=== PATIENT | female | born 1995 | race Caucasian/White ===

== ENCOUNTER 2018-10-31 06:44 | Emergency (ER) | payer OTHER ==
[~2018-10-31] VITALS: Ht 157.5 cm; Wt 44.5 kg
--- OUTSIDE RECORDS SUMMARY | 2018-10-31 06:49 | XMS REPORT | Continuity of Care Document ---
Author Author [facility] Interface Address Unknown Phone Unavailable Problems Problem Status Onset Date Classification Date Reported Comments Source Female dyspareunia 09/03/2018 09/04/2018 [facility] Menorrhagia 08/16/2018 08/19/2018 [facility] Dysmenorrhea 08/16/2018 08/19/2018 [facility] Hot flashes 08/16/2018 08/19/2018 [facility] Dyspareunia, female 04/07/2018 10/25/2018 [facility] Vaginal discharge 04/07/2018 10/25/2018 [facility] Irregular menstrual cycle 04/07/2018 10/25/2018 [facility] Final: Post- depression 06/04/2017 06/06/2017 [facility] Final: 6 weeks follow-up 05/21/2017 05/23/2017 [facility] Final: Contraception management 05/21/2017 05/23/2017 [facility] Final: examination following delivery 04/27/2017 04/30/2017 [facility] DECREASED MOVEMENT Active 04/08/2017 [facility] Discharge Diagnosis: 29 weeks gestation of 01/21/2017 01/24/2017 [facility] GENERAL WEAKNESS Active 01/21/2017 [facility] 16 weeks gestation of Resolved 10/30/2016 Problem 10/25/2018 [facility] Resolved 02/13/2016 Problem 10/25/2018 [facility] ABD PAIN Active 10/24/2014 [facility] Appendicitis Resolved 06/14/2008 Problem 10/25/2018 [facility] Herpes Resolved Problem 10/25/2018 [facility] ABDMNAL PAIN UNSPCF SITE Active [facility] Medications Medication Details Route Status Patient Instructions Ordering Provider Order Date Source Cephalexin 500 MG Oral Capsule [Keflex] 500 mg=1 cap, PO, BID, X 7 day, # 14 cap, 0 Refill(s), Pharmacy: [facility] No Longer Active 05/11/2018 [facility] Clindamycin 20 MG/ML Vaginal Cream 1 appl, VAG, Bedtime, # 5 gm, 1 Refill(s), Pharmacy: [facility] No Longer Active 04/07/2018 [facility] tinidazole 500 mg oral tablet 2,000 mg=4 tab, PO, ONCE, # 4 tab, 0 Refill(s), Pharmacy: [facility] No Longer Active 04/07/2018 [facility] Sertraline 50 MG Oral Tablet [Zoloft] 50 mg=1 tab, PO, Daily, # 30 tab, 5 Refill(s), Pharmacy: [facility] Active 06/04/2017 [facility] influenza virus vaccine, inactivated 0.5 mL, Route: IM, Drug Form: SUSP, Daily, Start date: 04/11/17 16:00:00 CDT, Duration: 1 doses or times, Stop date: 04/11/17 16:00:00 CDTNotes: (Same as: Fluzone Quadrivalent, Fluarix Quadrivalent) For 3 years of age and older (0.5 mL IM) Shake well before use Inactive 04/11/2017 [facility] Tender Care topical ointment See Instructions, Apply to area as needed, # 1 tube, 1 Refill(s), Pharmacy: [facility] Active 04/11/2017 [facility] ibuprofen 600 mg oral tablet 600 mg=1 tab, PO, Q6H, # 40 tab, 1 Refill(s), Pharmacy: [facility] Active 04/11/2017 [facility] docusate sodium 100 mg oral capsule 100 mg=1 cap, PO, BID, # 60 cap, 1 Refill(s), Pharmacy: [facility] Active 04/11/2017 [facility] acetaminophen-hydrocodone 325 mg-10 mg oral tablet 1 tab, PO, Q4H, PRN Pain Score 7-10, 0 Refill(s) Active 04/11/2017 [facility] Tylenol 650 mg, 2 tab, Route: PO, Drug form: TAB, Q4H, Dosing Weight 60, kg, PRN Other -See Comment, Start date: 04/10/17 17:32:00 CDT, Duration: 30 day, Stop date: 05/10/17 17:31:00 CSTNotes: Do not exceed 4 gm/day. (Same as: Tylenol) No Longer Active 04/10/2017 [facility] acetaminophen-hydrocodone 325 mg-5 mg oral tablet 1 tab, Route: PO, Drug Form: TAB, Dosing Weight 59.545, kg, Q4H, PRN Pain Score 4-6, Start date: 04/10/17 16:51:00 CDT, Duration: 30 day, Stop date: 05/10/17 16:50:00 CSTNotes: (Same as: [place] 325/5) Do not exceed 4gm/day of acetaminophen. No Longer Active 04/10/2017 [facility] acetaminophen-hydrocodone 325 mg-5 mg oral tablet 2 tab, Route: PO, Drug Form: TAB, Dosing Weight 59.545, kg, Q4H, PRN Pain Score 7-10, NOW, Start date: 04/10/17 14:32:00 CDT, Duration: 30 day, Stop date: 05/10/17 14:31:00 CSTNotes: (Same as: Flagler 325/5) Do not exceed 4gm/day of acetaminophen. No Longer Active 04/10/2017 [facility] acetaminophen-hydrocodone 325 mg-10 mg oral tablet 1 tab, Route: PO, Drug Form: TAB, Dosing Weight 60, kg, Q4H, PRN Pain Score 7-10, NOW, Start date: 04/10/17 14:32:00 CDT, Duration: 30 day, Stop date: 05/10/17 14:31:00 CSTNotes: Do not exceed 4gm/day of acetaminophen. (Same as: [place] 325/10) No Longer Active 04/10/2017 [facility] influenza virus vaccine, inactivated 0.5 mL, Route: IM, Drug Form: SUSP, Daily, Start date: 04/10/17 9:00:00 CDT, Duration: 1 doses or times, Stop date: 04/10/17 9:00:00 CDTNotes: (Same as: Fluzone Quadrivalent, Fluarix Quadrivalent) For 3 years of age and older (0.5 mL IM) Shake well before use No Longer Active 04/10/2017 [facility] Multivitamins oral tablet 1 tab, Route: PO, Drug Form: TAB, Dosing Weight 60, kg, Daily, Start date: 04/10/17 9:00:00 CDT, Duration: 30 day, Stop date: 05/09/17 9:00:00 EDITORIAL SPECIALIST No Longer Active 04/10/2017 [facility] acetaminophen 1,000 mg, 2 tab, Route: PO, Drug form: TAB, Q6Hnow, Dosing Weight 60, kg, Start date: 04/09/17 22:27:00 CDT, Duration: 24 hr, Stop date: 04/10/17 16:27:00 CDTNotes: Max acetaminophen 4000 mg/day (4 g m/day). (Same as: Tylenol Extra Strength) Active 04/10/2017 [facility] ibuprofen 600 mg, 1 tab, Route: PO, Drug form: TAB, Q6H, Dosing Weight 60, kg, Start date: 04/09/17 18:00:00 CDT, Duration: 30 day, Stop date: 05/09/17 12:00:00 CSTNotes: (Same as: Motrin) "Do Not Crush" Take with food. No Longer Active 04/09/2017 [facility] docusate 100 mg, 1 cap, Route: PO, Drug form: CAP, BID, Dosing Weight 60, kg, Start date: 04/09/17 17:00:00 CDT, Duration: 30 day, Stop date: 05/09/17 9:00:00 CSTNotes: (Same as: Colace) (Do Not Crush) No Longer Active 04/09/2017 [facility] M-M-R II 0.5 mL, Route: SUB-Q, Drug Form: PDR/INJ, Dosing Weight 60, kg, ONCALL, Start date: 04/09/17 17:00:00 CDT, Duration: 1 doses or times, Stop date: 04/21/17 0:00:00 CSTNotes: (Same as: M-M-R II) (measles -mumps-rubella virus vaccine 0.5 ml INJ VL) WASTE: F/P - Red; E -Red GIVE PRIOR TO DISCHARGE No Longer Active 04/09/2017 [facility] tetanus/diphth/pertussis (Tdap) adult/adol 5 units-2 units-15.5 mcg/0.5 mL intramuscular suspension 0.5 mL, Route: IM, Drug Form: SUSP, Dosing Weight 60, kg, ONCALL, Start date: 04/09/17 17:00:00 CDT, Duration: 1 doses or times, Stop date: 04/19/17 0:00:00 CSTNotes: (Tdap ) For Adolecent and Adult use For IM Use. Same as: Adacel (Tdap) No Longer Active 04/09/2017 [facility] naloxone 0.4 mg, 1 mL, Route: IVP, Drug form: INJ, ONCALL, Dosing Weight 60, kg, Start date: 04/09/17 17:00:00 CDT, Duration: 24 hr, Stop date: 04/10/17 16:59:00 CDTNotes: Same as Narcan No Longer Active 04/09/2017 [facility] phenylephrine (ANES) Route: IV, Drug form: INJ, ONCE, Stop date: 04/09/17 16:56:00 CDT Inactive 04/09/2017 [facility] promethazine (ANES) Route: IV, Drug form: INJ, ONCE, Stop date: 04/09/17 16:56:00 CDT Inactive 04/09/2017 [facility] azithromycin (ANES) Route: IV, Drug form: INJ, ONCE, Stop date: 04/09/17 16:56:00 CDT Inactive 04/09/2017 [facility] Pitocin (ANES) Route: IVP, Drug form: SOLN, ONCE, Stop date: 04/09/17 16:56:00 CDT Inactive 04/09/2017 [facility] acetaminophen (ANES) Route: IV, Drug form: INJ, ONCE, Stop date: 04/09/17 16:56:00 CDT Inactive 04/09/2017 [facility] acetaminophen-hydrocodone 325 mg-5 mg oral tablet 1 tab, Route: PO, Dosing Weight 60, kg, Q4H, PRN Pain Score 4-6, Start date: 04/09/17 16:53:00 CDT, Duration: 30 day, Stop date: 05/09/17 16:52:00 EDITORIAL SPECIALIST Inactive 04/09/2017 [facility] acetaminophen-hydrocodone 325 mg-10 mg oral tablet 1 tab, Route: PO, Dosing Weight 60, kg, Q4H, PRN Pain Score 7-10, Start date: 04/09/17 16:53:00 CDT, Duration: 30 day, Stop date: 05/09/17 16:52:00 EDITORIAL SPECIALIST Inactive 04/09/2017 [facility] lanolin topical cream 1 appl, Route: TOP, PRN, Drug form: OINT, PRN Other -See Comment, Start date: 04/09/17 16:53:00 CDT, Duration: 30 day, Stop date: 05/09/17 15:52:00 CSTNotes: (Same as:Lanolin) No Longer Active 04/09/2017 [facility] zolpidem 5 mg, 1 tab, Route: PO, Drug form: TAB, Bedtime, Dosing Weight 60, kg, PRN Insomnia, Start date: 04/09/17 16:53:00 CDT, Duration: 30 day, Stop date: 05/09/17 16:52:00 CSTNotes: (Same As: Ambien) No Longer Active 04/09/2017 [facility] simethicone 160 mg, 2 tab, Route: PO, Drug form: CHEWTAB, Q8H, Dosing Weight 60, kg, PRN Gas, Start date: 04/09/17 16:53:00 CDT, Duration: 30 day, Stop date: 05/09/17 16:52:00 CSTNotes: (Same as: Mylicon) No Longer Active 04/09/2017 [facility] acetaminophen 650 mg, Route: PO, Drug form: TAB, Q4H, Dosing Weight 60, kg, PRN Other -See Comment, Start date: 04/09/17 16:53:00 CDT, Duration: 30 day, Stop date: 05/09/17 16:52:00 EDITORIAL SPECIALIST Inactive 04/09/2017 [facility] benzocaine-menthol topical 1 lozenge, Route: PO, Drug Form: SARITA, Dosing Weight 60, kg, PRN, PRN Sore Throat, Start date: 04/09/17 16:53:00 CDT, Duration: 30 day, Stop date: 05/09/17 15:52:00 CSTNotes: Cepacol lozenges Dispense 1 box=16 lozenges (Same As: Cepacol Lozenges) No Longer Active 04/09/2017 [facility] bisacodyl 10 mg, 1 supp, Route: HI, Drug form: SUPP, PRN, Dosing Weight 60, kg, PRN Other -See Comment, Start date: 04/09/17 16:53:00 CDT, Duration: 30 day, Stop date: 05/09/17 15:52:00 CSTNotes: (Same As: Dul colax, Bisco-Lax) No Longer Active 04/09/2017 [facility] oxytocin 30 units/NS 500 ml 30 unit 30 unit, 500 mL, Rate: 42 ml/hr, Infuse over: 11.9 hr, Dosing Weight 60, kg, Route: IV, Total Volume: 500 mL, Start date: 04/09/17 16:53:00 CDT, Duration: 2 day, Stop date: 04/11/17 16:52:00 CDT, Replace Every: 11.9 hr No Longer Active 04/09/2017 [facility] Lactated Ringers 1,000 mL 1,000 mL, Rate: 100 ml/hr, Infuse over: 10 hr, Route: IV, Dosing Weight 60 kg, Total Volume: 1,000, Start date: 04/09/17 16:53:00 CDT, Duration: 30 day, Stop date: 05/09/17 16:52:00 EDITORIAL SPECIALIST No Longer Active 04/09/2017 [facility] diphenhydrAMINE (ANES) Route: IV, Drug form: INJ, ONCE, Stop date: 04/09/17 16:50:00 CDT Inactive 04/09/2017 [facility] dexamethasone (ANES) Route: IV, Drug form: INJ, ONCE, Stop date: 04/09/17 16:50:00 CDT Inactive 04/09/2017 [facility] fentaNYL (ANES) Route: INTRATHECAL, Drug form: INJ, ONCE, Stop date: 04/09/17 16:50:00 CDT Inactive 04/09/2017 [facility] bupivacaine (ANES) Route: INTRATHECAL, Drug Form: INJ, ONCE, Stop date: 04/09/17 16:50:00 CDT Inactive 04/09/2017 [facility] morphine Sulfate (ANES) Route: INTRATHECAL, Drug form: INJ, ONCE, Stop date: 04/09/17 16:50:00 CDT Inactive 04/09/2017 [facility] meperidine 12.5 mg, 0.25 mL, Route: IVP, Drug form: INJ, ONCE, Dosing Weight 60, kg, Start date: 04/09/17 16:49:00 CDT, Stop date: 04/09/17 16:49:00 CDTNotes: (Same as: Demerol) "Use Precaution in Elderly, S eizure disorders, and Renal impairment" Inactive 04/09/2017 [facility] promethazine 6.25 mg, 0.25 mL, Route: IVPB, Drug form: INJ, Q6H, Dosing Weight 60, kg, PRN Nausea & Vomiting, Start date: 04/09/17 16:49:00 CDT, Duration: 24 hr, Stop date: 04/10/17 16:48:00 CDTNotes: Do not give IV push. (Same as: Phenergan) No Longer Active 04/09/2017 [facility] ondansetron 4 mg, 2 mL, Route: IVP, Drug form: INJ, Q6H, Dosing Weight 60, kg, PRN Nausea & Vomiting, Start date: 04/09/17 16:49:00 CDT, Duration: 24 hr, Stop date: 04/10/17 16:48:00 CDTNotes: (Same as: Zofran) MEDICATION WASTE Product Size: 4 mg Product Wasted: ___ mg No Longer Active 04/09/2017 [facility] ketOROLAC 30 mg, 1 mL, Route: IVP, Drug form: INJ, Q6H, Dosing Weight 60, kg, PRN Pain Score 4-6, Start date: 04/09/17 16:49:00 CDT, Duration: 24 hr, Stop date: 04/10/17 16:48:00 CDTNotes: (Same as:Toradol) IV bolus must be given >15 seconds. Give IM administration slowly and deeply into the muscle. Not for use > 4 days MEDICATION WASTE Product Size: 30 mg Product Wasted: ___ mg No Longer Active 04/09/2017 [facility] ceFAZolin (ANES) Route: IV, Drug form: INJ, ONCE, Stop date: 04/09/17 16:45:00 CDT Inactive 04/09/2017 [facility] sodium citrate (ANES) Route: PO, Drug Form: INJ, ONCE, Stop date: 04/09/17 16:35:00 CDT Inactive 04/09/2017 [facility] ondansetron (ANES) Route: IV, Drug form: INJ, ONCE, Stop date: 04/09/17 16:35:00 CDT Inactive 04/09/2017 [facility] famotidine (ANES) Route: IV, Drug form: INJ, ONCE, Stop date: 04/09/17 16:35:00 CDT Inactive 04/09/2017 [facility] Pitocin (ANES) (ANES) + Route: IVPB, Drug form: SOLN, Dosing Weight 60, kg, Start date: 04/09/17 16:27:00 CDT, Stop date: 04/09/17 17:27:00 CDT Inactive 04/09/2017 [facility] LR 1000 mL INJ (ANES) Route: IV, Total Volume: 1,000, Start date: 04/09/17 15:58:00 CDT, Stop date: 04/09/17 16:58:00 CDT Inactive 04/09/2017 [facility] Remove - dinoprostone (Cervidil) insert 1 ea, Route: VAG, Drug Form: INS, Dosing Weight 59.545, kg, ONCALL, Start date: 04/09/17 8:00:00 CDT, Duration: 30 day, Stop date: 05/09/17 6:59:00 CSTNotes: Vaginal insert: to be removed 1 hour prior to oxytocin administration or 12 hours after insertion. Inactive 04/09/2017 [facility] misoprostol 1,000 microgram, 5 tab, Route: HI, Drug form: TAB, ONCALL, Dosing Weight 59.545, kg, Start date: 04/08/17 20:00:00 CDT, Duration: 1 doses or timesNotes: (Same as:Cytotec) Take with food No Longer Active 04/09/2017 [facility] methylergonovine 0.2 mg, 1 mL, Route: IM, Drug form: INJ, ONCALL, Dosing Weight 59.545, kg, Start date: 04/08/17 20:00:00 CDT, Duration: 30 day, Stop date: 05/08/17 18:59:00 CSTNotes: (Same as:Methergine) No Longer Active 04/09/2017 [facility] citric acid-sodium citrate 30 mL, Route: PO, Drug Form: SOLN, Dosing Weight 59.545, kg, ONCALL, Start date: 04/08/17 20:00:00 CDT, Duration: 30 day, Stop date: 05/08/17 18:59:00 CSTNotes: (Same As: Bicitra, Cytra-2) Sodium citrate-citric acid (500-334 mg/5 mL): 1 mL contains sodium 1 mEq/mL and bicarbonate 1 mEq/mL No Longer Active 04/09/2017 [facility] carboprost 250 microgram, 1 mL, Route: IM, Drug form: INJ, ONCALL, Dosing Weight 59.545, kg, Start date: 04/08/17 20:00:00 CDT, Duration: 30 day, Stop date: 05/08/17 18:59:00 CSTNotes: (Same As: Hemabate) No Longer Active 04/09/2017 [facility] famotidine 20 mg, 2 mL, Route: IVP, Drug form: INJ, ONCALL, Dosing Weight 59.545, kg, Start date: 04/08/17 20:00:00 CDT, Duration: 30 day, Stop date: 05/08/17 18:59:00 CSTNotes: (Same as: Pepcid) Can be dilute in 5-10cc NS IVP: Slow IV push over at least 2 minutes. No Longer Active 04/09/2017 [facility] Cervidil 10 mg, 1 supp, Route: VAG, Drug form: SUPP, ONCE, Dosing Weight 59.545, kg, Start date: 04/08/17 19:36:00 CDT, Duration: 1 doses or times, Stop date: 04/08/17 19:36:00 CDTNotes: (Same as: Cervidil) No Longer Active 04/09/2017 [facility] lidocaine 1% 200 mg, 20 mL, Route: PERCUT, Drug Form: INJ, Dosing Weight 59.545, kg, PRN, PRN Other -See Comment, Start date: 04/08/17 19:34:00 CDT, Duration: 1 doses or times, Stop date: Limited # of timesNotes: (Same as: Xylocaine) No Longer Active 04/09/2017 [facility] terbutaline 0.25 mg, 0.25 mL, Route: SUB-Q, Drug form: INJ, PRN, Dosing Weight 59.545, kg, PRN Other -See Comment, Start date: 04/08/17 19:34:00 CDT, Duration: 1 doses or times, Stop date: Limited # of timesNotes: DO NOT USE IN POURING CRANE OPERATOR AREA (Same As: Brethine) No Longer Active 04/09/2017 [facility] Lactated Ringers 1,000 mL 1,000 mL, Rate: 125 ml/hr, Infuse over: 8 hr, Route: IV, Dosing Weight 59.545 kg, Total Volume: 1,000, Start date: 04/08/17 19:34:00 CDT, Duration: 30 day, Stop date: 05/08/17 19:33:00 EDITORIAL SPECIALIST No Longer Active 04/09/2017 [facility] oxytocin 30 units/NS 500 ml 30 unit 30 unit, 500 mL, Rate: 42 ml/hr, Infuse over: 11.9 hr, Dosing Weight 59.545, kg, Route: IV, Total Volume: 500 mL, Start date: 04/08/17 19:34:00 CDT, Duration: 2 day, Stop date: 04/10/17 19:33:00 CDT, Replace Every: 11.9 hr No Longer Active 04/09/2017 [facility] lidocaine 1% injectable solution 0.25 mL, Route: INTRADERM, Drug Form: INJ, Dosing Weight 59.545, kg, PRN, PRN Other -See Comment, Start date: 04/08/17 19:34:00 CDT, Duration: 30 day, Stop date: 05/08/17 18:33:00 CSTNotes: Preservative free. (Same as: Xylocaine MPF) No Longer Active 04/09/2017 [facility] Lactated Ringers (Bolus) IV 1,000 mL, 1,000 ml/hr, Infuse Over: 1 hr, Route: IV, 1,000, Drug form: INJ, ONCE, Dosing Weight 59.545 kg, Start date: 04/08/17 19:34:00 CDT, Stop date: 04/08/17 19:34:00 CDT, Bolus for regional anesthesia per unit protocol No Longer Active 04/09/2017 [facility] butorphanol 2 mg, 1 mL, Route: IVP, Drug form: INJ, Q2H, Dosing Weight 59.545, kg, PRN Pain Score 7-10, Start date: 04/08/17 19:34:00 CDT, Duration: 30 day, Stop date: 05/08/17 19:33:00 CSTNotes: (Same As: Stal) MEDICATION WASTE Product Size: 2 mg Product Wasted: ___ mg No Longer Active 04/09/2017 [facility] acetaminophen-hydrocodone 325 mg-5 mg oral tablet 2 tab, Route: PO, Drug Form: TAB, Dosing Weight 59.545, kg, Q4H, PRN Pain Score 7-10, Start date: 04/08/17 19:34:00 CDT, Duration: 30 day, Stop date: 05/08/17 19:33:00 CSTNotes: (Same as: [place] 325/5) Do not exceed 4gm/day of acetaminophen. No Longer Active 04/09/2017 [facility] ondansetron 4 mg, 2 mL, Route: IVP, Drug form: INJ, Q8H, Dosing Weight 59.545, kg, PRN Nausea & Vomiting, Start date: 04/08/17 19:34:00 CDT, Duration: 30 day, Stop date: 05/08/17 19:33:00 CSTNotes: (Same as: Zofran) MEDICATION WASTE Product Size: 4 mg Product Wasted: ___ mg No Longer Active 04/09/2017 [facility] ibuprofen 600 mg, 1 tab, Route: PO, Drug form: TAB, Q6H, Dosing Weight 59.545, kg, PRN Other -See Comment, Start date: 04/08/17 19:34:00 CDT, Duration: 30 day, Stop date: 05/08/17 19:33:00 CSTNotes: (Same as: Motrin) "Do Not Crush" Take with food. No Longer Active 04/09/2017 [facility] ferrous sulfate 325 mg oral enteric coated tablet 325 mg=1 tab, PO, BID, give with orange juice, # 60 tab, 1 Refill(s), Pharmacy: [facility] Pharmacy Maximo Ibarra Active 01/21/2017 [facility] Calcium Chloride 0.0014 MEQ/ML / Potassium Chloride 0.004 MEQ/ML / Sodium Chloride 0.103 MEQ/ML / Sodium Lactate 0.028 MEQ/ML Injectable Solution 1,000 mL, Rate: 125 ml/hr, Infuse over: 8 hr, Route: IV, Dosing Weight 54.545 kg, Total Volume: 1,000, Start date: 01/21/17 14:27:00 CDT, Duration: 30 day, Stop date: 02/20/17 14:26:00 CDT No Longer Active 01/21/2017 [facility] Allergies, Adverse Reactions, Alerts Substance Category Reaction Severity Reaction type Status Date Reported Comments Source No Known Medication Allergies Assertion Drug allergy [facility] Immunizations Immunization Date Given Site Status Last Updated Comments Source influenza virus vaccine, inactivated 04/11/2017 Right Deltoid completed [facility]rij[facility] diphtheria/pertussis, acel/tetanus adult 01/26/2017 Left Deltoid completed [facility] diphtheria/pertussis, acel/tetanus adult 01/26/2017 Left Deltoid completed [facility] Results Order Name Results Value Reference Range Date Interpretation Comments Source MOLECULAR DIAGNOSTIC C trachomatis by Amp Det (APTIMA) Negative *NA* (04/08/18 4:00 PM) Negative 04/08/2018 [facility] MOLECULAR DIAGNOSTIC Source APTIMA Urine *NA* (04/08/18 4:00 PM) 04/08/2018 [facility] MOLECULAR DIAGNOSTIC N gonorrhea by Amp Det (APTIMA) Negative *NA* (04/08/18 4:00 PM) Negative 04/08/2018 [facility] Culture: Urine 10,000 - 50,000 CFU/mL Yeast 04/08/2018 [facility] HEMATOLOGY Hct 29.6 % 36.0 - 48.0 04/10/2017 [facility] HEMATOLOGY Hgb 10.3 g/dL 12.0 - 16.0 04/10/2017 [facility] BLOOD BANK RESULTS ABO/Rh O POS 04/09/2017 [facility] BLOOD BANK RESULTS Antibody Scrn Negative (04/08/17 8:30 PM) 04/09/2017 [facility] HEMATOLOGY WBC 7.8 K/CMM 3.7 - 10.4 04/09/2017 [facility] HEMATOLOGY Hct 33.4 % 36.0 - 48.0 04/09/2017 [facility] HEMATOLOGY RBC 3.61 M/CMM 4.20 - 5.40 04/09/2017 [facility] HEMATOLOGY MCV 92.6 fL 80.0 - 98.0 04/09/2017 [facility] HEMATOLOGY MCH 32.0 pg 27.0 - 31.0 04/09/2017 [facility] HEMATOLOGY Hgb 11.5 g/dL 12.0 - 16.0 04/09/2017 [facility] HEMATOLOGY MCHC 34.5 g/dL 32.0 - 36.0 04/09/2017 [facility] HEMATOLOGY MPV 8.5 fL 7.4 - 10.4 04/09/2017 [facility] HEMATOLOGY RDW 14.9 % 11.5 - 14.5 04/09/2017 [facility] HEMATOLOGY Platelet 163 K/CMM 133 - 450 04/09/2017 [facility] HEMATOLOGY Segs-Bands # 5.1 K/CMM 1.5 - 8.1 04/09/2017 [facility] HEMATOLOGY Monocytes # 0.6 K/CMM 0.0 - 0.8 04/09/2017 [facility] HEMATOLOGY Lymphocytes # 2.1 K/CMM 1.0 - 5.5 04/09/2017 [facility] HEMATOLOGY Eosinophils 0.3 % 0.0 - 4.0 04/09/2017 [facility] HEMATOLOGY Basophils 0.2 % 0.0 - 1.0 04/09/2017 [facility] HEMATOLOGY Lymphocytes 27.0 % 20.0 - 40.0 04/09/2017 [facility] HEMATOLOGY Monocytes 7.8 % 2.0 - 12.0 04/09/2017 [facility] HEMATOLOGY Segs 64.7 % 45.0 - 75.0 04/09/2017 [facility] IMMUNOLOGY Hep Bs Ag Negative *NA* (04/08/17 8:30 PM) Negative 04/09/2017 [facility] IMMUNOLOGY HIV. Negative *NA* (04/08/17 8:30 PM) Negative 04/09/2017 [facility] IMMUNOLOGY Treponemal Scr Non Reactive *NA* (04/08/17 8:30 PM) Non Reactive 04/09/2017 [facility] CHEM PANEL Magnesium Lvl 1.9 mg/dL 1.8 - 2.4 01/21/2017 [facility] CHEM PANEL eGFR 136 mL/min/1.73m2 01/21/2017 Result Comment: The eGFR is calculated using the CKD-EPI formula. In most young, healthy individuals the eGFR will be >90 mL/min/1.73m2. The eGFR declines with age. An eGFR of 60-89 may be normal in some populations, particularly the elderly, for whom the CKD-EPI formula has not been extensively validated. Use of the eGFR is not recommended in the following populations: Individuals with unstable creatinine concentrations, including patients and those with serious co-morbid conditions. Patients with extremes in muscle mass or diet. The data above are obtained from the National Kidney Disease Education Program (NKDEP) which additionally recommends that when the eGFR is used in patients with extremes of body mass index for purposes of drug dosing, the eGFR should be multiplied by the estimated BMI. [facility] CHEM PANEL Bili Total 0.2 mg/dL 0.2 - 1.3 01/21/2017 [facility] CHEM PANEL Alk Phos 88 unit/L 39 - 136 01/21/2017 [facility] CHEM PANEL AST 19 unit/L 0 - 37 01/21/2017 [facility] CHEM PANEL Albumin Lvl 2.8 g/dL 3.5 - 5.0 01/21/2017 [facility] CHEM PANEL Total Protein 6.6 g/dL 6.4 - 8.4 01/21/2017 [facility] CHEM PANEL Calcium Lvl 9.1 mg/dL 8.5 - 10.5 01/21/2017 [facility] CHEM PANEL CO2 24 meq/L 24 - 32 01/21/2017 [facility] CHEM PANEL Chloride Lvl 105 meq/L 95 - 109 01/21/2017 [facility] CHEM PANEL ALT 20 unit/L 0 - 65 01/21/2017 [facility] CHEM PANEL Sodium Lvl 140 meq/L 135 - 145 01/21/2017 [facility] CHEM PANEL Potassium Lvl 3.7 meq/L 3.5 - 5.1 01/21/2017 [facility] CHEM PANEL Creatinine Lvl 0.55 mg/dL 0.50 - 1.40 01/21/2017 [facility] CHEM PANEL Glucose Lvl 83 mg/dL 70 - 99 01/21/2017 [facility] CHEM PANEL BUN 8 mg/dL 7 - 22 01/21/2017 [facility] CHEM PANEL A/G Ratio 0.7 0.7 - 1.6 01/21/2017 [facility] CHEM PANEL Globulin 3.8 g/dL 2.7 - 4.2 01/21/2017 [facility] CHEM PANEL B/C Ratio 15 6 - 25 01/21/2017 [facility] CHEM PANEL AGAP 14.7 meq/L 10.0 - 20.0 01/21/2017 [facility] HEMATOLOGY Lymphocytes 22.9 % 20.0 - 40.0 01/21/2017 [facility] HEMATOLOGY Segs 70.4 % 45.0 - 75.0 01/21/2017 [facility] HEMATOLOGY Lymphocytes # 1.9 K/CMM 1.0 - 5.5 01/21/2017 [facility] HEMATOLOGY Basophils 0.2 % 0.0 - 1.0 01/21/2017 [facility] HEMATOLOGY Eosinophils 0.2 % 0.0 - 4.0 01/21/2017 [facility] HEMATOLOGY Monocytes 6.3 % 2.0 - 12.0 01/21/2017 [facility] HEMATOLOGY Segs-Bands # 5.9 K/CMM 1.5 - 8.1 01/21/2017 [facility] HEMATOLOGY Monocytes # 0.5 K/CMM 0.0 - 0.8 01/21/2017 [facility] HEMATOLOGY MCHC 33.7 g/dL 32.0 - 36.0 01/21/2017 [facility] HEMATOLOGY MCH 31.4 pg 27.0 - 31.0 01/21/2017 [facility] HEMATOLOGY MCV 93.3 fL 80.0 - 98.0 01/21/2017 [facility] HEMATOLOGY RDW 12.9 % 11.5 - 14.5 01/21/2017 [facility] HEMATOLOGY Platelet 233 K/CMM 133 - 450 01/21/2017 [facility] HEMATOLOGY MPV 8.2 fL 7.4 - 10.4 01/21/2017 [facility] HEMATOLOGY Hgb 10.2 g/dL 12.0 - 16.0 01/21/2017 [facility] HEMATOLOGY WBC 8.4 K/CMM 3.7 - 10.4 01/21/2017 [facility] HEMATOLOGY RBC 3.24 M/CMM 4.20 - 5.40 01/21/2017 [facility] HEMATOLOGY Hct 30.2 % 36.0 - 48.0 01/21/2017 [facility] Pelvis w pelvis doppler US Pelvis w pelvis doppler US PELVIS WITH PELVIS DOPPLER US HISTORY: 19 y/o F with pain PELVIC ULTRASOUND (TRANSABDOMINAL): Transabdominal views of the pelvis reveal a uterus which is anteverted and measures 8 cm. The right and left ovaries are visualized and are grossly normal in size. Mild free fluid is noted in the cul-de-sac. The bladder is moderately distended and is smooth in contour. PELVIC ULTRASOUND (TRANSVAGINAL): The transvaginal study demonstrates a well-defined endometrial stripe measuring 6 mm in thickness. There is no significant nabothian cyst formation. A small amount of free fluid is again noted in the cul-de-sac.. There is no evidence of abnormal intrauterine fluid collection. Views of the adnexal regions reveal normal appearance of the right and left ovary. Doppler examination shows adequate blood flow bilaterally. The right ovary measures 3.9 x 3.2 x 2.8 cm. The left ovary measures 4.0 x 1.6 x 3.5 cm. IMPRESSION: 1. Small amount of free fluid in the cul-de-sac. 2. Otherwise negative pelvic ultrasound. SL: 12 11/02/2014 - - Read by: Feliciano Culver MD Dictated Date/time: 11/02/14 09:58 Electronically Signed by: Feliciano Culver MD 11/02/14 10:04 FINAL REPORT [facility] Abdomen complete US Abdomen complete US ABDOMINAL ULTRASOUND HX: pain COMPARISON: None FINDINGS: The gallbladder is normal. Views of the abdomen reveal no evidence of cholelithiasis or dilatation of bile ducts. The liver is echogenic in a fashion consistent with fatty infiltration.. Views of the kidneys show no hydronephrosis or perinephric fluid. RT Kidney=10.0 x 3.8 x 4.9 cm LT Kidney=10.1 x 5.3 x 4.9 cm The pancreas is well seen and is normal. The common hepatic duct is within normal limits of size, measuring 4 mm. The spleen, IVC and abdominal aorta are not enlarged. Spleen=9.9 x 3.9 x 3.9 cm IMPRESSION: Fatty liver. Otherwise negative abdominal ultrasound. SL: 12 11/02/2014 - - Read by: Feliciano Culver MD Dictated Date/time: 11/02/14 10:05 Electronically Signed by: Feliciano Culver MD 11/02/14 10:16 FINAL REPORT [facility] Vital Signs Vital Sign Value Date Comments Source Weight 45.568 09/02/2018 [facility] BMI Calculated 18.98 09/02/2018 [facility] Height 154.94 cm 09/02/2018 [facility] Heart Rate 64 09/02/2018 [facility] Temperature Oral (F) 99 F 09/02/2018 [facility] Systolic (mm Hg) 125 09/02/2018 [facility] Diastolic (mm Hg) 81 09/02/2018 [facility] BMI Calculated 18.53 08/16/2018 [facility] Height 157.48 cm 08/16/2018 [facility] Weight 45.966 08/16/2018 [facility] Systolic (mm Hg) 118 08/16/2018 [facility] Diastolic (mm Hg) 78 08/16/2018 [facility] BMI Calculated 19.76 04/07/2018 [facility] Weight 47.443 04/07/2018 [facility] Height 154.94 cm 04/07/2018 [facility] Heart Rate 109 04/07/2018 [facility] Systolic (mm Hg) 115 04/07/2018 [facility] Diastolic (mm Hg) 79 04/07/2018 [facility] Heart Rate 80 06/03/2017 [facility] Height 157.48 cm 06/03/2017 [facility] BMI Calculated 19.79 06/03/2017 [facility] Weight 49.091 06/03/2017 [facility] Systolic (mm Hg) 122 06/03/2017 [facility] Diastolic (mm Hg) 84 06/03/2017 [facility] BMI Calculated 19.79 05/20/2017 [facility] Weight 49.091 05/20/2017 [facility] Systolic (mm Hg) 115 05/20/2017 [facility] Diastolic (mm Hg) 80 05/20/2017 [facility] Heart Rate 76 05/20/2017 [facility] Height 157.48 cm 05/20/2017 [facility] BMI Calculated 18.58 04/27/2017 [facility] Height 162.56 cm 04/27/2017 [facility] Weight 49.091 04/27/2017 [facility] Systolic (mm Hg) 123 04/27/2017 [facility] Diastolic (mm Hg) 88 04/27/2017 [facility] Heart Rate 94 04/27/2017 [facility] Temperature Oral (F) 97.9 F 04/11/2017 [facility] Heart Rate 86 04/11/2017 [facility] Respitory Rate 18 04/11/2017 [facility] Systolic (mm Hg) 126 04/11/2017 [facility] Diastolic (mm Hg) 78 04/11/2017 [facility] Systolic (mm Hg) 120 04/11/2017 [facility] Diastolic (mm Hg) 76 04/11/2017 [facility] Heart Rate 76 04/11/2017 [facility] Temperature Oral (F) 98.3 F 04/11/2017 [facility] Respitory Rate 18 04/11/2017 [facility] Heart Rate 84 04/11/2017 [facility] Temperature Oral (F) 98.3 F 04/11/2017 [facility] Respitory Rate 18 04/11/2017 [facility] Systolic (mm Hg) 128 04/11/2017 [facility] Diastolic (mm Hg) 84 04/11/2017 [facility] Weight 60 04/09/2017 [facility] BMI Calculated 24.19 04/09/2017 [facility] Height 157.48 cm 04/09/2017 [facility] Weight 59.545 04/08/2017 [facility] Height 157.48 cm 04/08/2017 [facility] BMI Calculated 24.01 04/08/2017 [facility] Heart Rate 89 01/21/2017 [facility] Systolic (mm Hg) 97 01/21/2017 [facility] Diastolic (mm Hg) 56 01/21/2017 [facility] Systolic (mm Hg) 104 01/21/2017 [facility] Diastolic (mm Hg) 60 01/21/2017 [facility] Heart Rate 92 01/21/2017 [facility] Respitory Rate 16 01/21/2017 [facility] Temperature Oral (F) 97.9 F 01/21/2017 [facility] Systolic (mm Hg) 113 01/21/2017 [facility] Diastolic (mm Hg) 67 01/21/2017 [facility] Heart Rate 85 01/21/2017 [facility] BMI Calculated 21.99 01/21/2017 [facility] Height 157.48 cm 01/21/2017 [facility] Weight 54.545 01/21/2017 [facility] Temperature Oral (F) 97.6 F 01/21/2017 [facility] Respitory Rate 18 01/21/2017 [facility] Encounters Location Location Details Encounter Type Encounter Number Reason For Visit Attending Provider ADM Date DC Date Status Source [facility] Outpatient [id number] Conchita Rigo Leon 11/02/2014 11/03/2014 [facility] Outpatient [id number] NURSE VISIT 08/28/2016 Active [facility] Outpatient [id number] BALJIT PETERS 08/28/2016 Active [facility] Outpatient [id number] NURSE VISIT 10/02/2016 Active [facility] Outpatient [id number] BALJIT PETERS 10/02/2016 Active [facility] Outpatient [id number] BALJIT PETERS 10/30/2016 Active [facility] Outpatient [id number] NURSE VISIT 11/26/2016 Active [facility] Outpatient [id number] BALJIT PETERS 11/26/2016 Active [facility] Outpatient [id number] BALJIT PETERS 12/24/2016 [facility] [id number] NURSE VISIT 01/21/2017 Active [facility] Emergency [id number] Pily Da Silvard 01/21/2017 01/21/2017 [facility] Outpatient [id number] BALJIT PETERS 01/26/2017 Active [facility] Outpatient [id number] NURSE VISIT 01/26/2017 [facility] [id number] BALJIT PETERS 02/18/2017 [facility] [id number] BALJIT PETERS 03/11/2017 [facility] [id number] BALJIT PETERS 03/25/2017 [facility] [id number] NURSE VISIT 03/25/2017 Active [facility] Outpatient [id number] BALJIT PETERS 04/02/2017 Active [facility] Outpatient [id number] BALJIT PETERS 04/08/2017 Active [facility] Inpatient [id number] Baljit Peters 04/08/2017 04/11/2017 [facility] Outpatient [id number] BALJIT PETERS 04/09/2017 Active [facility] Outpatient [id number] BALJIT PETERS 04/27/2017 [facility] [employer] [facility] C Outpatient [id number] Baljit Peters 04/27/2017 04/28/2017 [facility] Outpatient [id number] BALJIT PETERS 05/20/2017 [facility] Out[facility] [id number] Baljit Peters 05/20/2017 05/21/2017 [facility] Outpatient [id number] BALJIT PETERS 05/25/2017 [facility] [employer]ATOR [facility] Ambulatory Pre- Reg [id number] Baljit Peters 05/25/2017 05/25/2017 [facility] Outpatient [id number] BALJIT PETERS 06/03/2017 [facility]patient [id number] NURSE VISIT 06/03/2017 [facility] [employer] C Outpatient [id number] Baljit Peters 06/03/2017 06/04/2017 [facility] [employer] Outpatient [id number] NURSE VISIT 06/03/2017 06/04/2017 [facility] Outpatient [id number] NURSE VISIT 01/25/2018 Active [facility] Outpatient [id number] BALJIT PETERS 01/25/2018 [facility] [employer] C Ambulatory Pre- Reg [id number] NURSE VISIT 01/25/2018 01/25/2018 [facility] [facility] C Ambulatory Pre- Reg [id number] Baljit Peters 01/25/2018 01/25/2018 [facility] Outpatient [id number] BALJIT PETERS 04/07/2018 [facility] C Outpatient [id number] Baljit Peters 04/07/2018 04/08/2018 [facility] Outpatient [id number] NURSE VISIT 04/13/2018 Active [facility] Outpatient [id number] BALJIT PETERS 04/15/2018 [facility] Outpatient [id number] BALJIT PETERS 05/17/2018 [facility] Outpatient [id number] BALJIT PETERS 08/16/2018 Active [facility] [employer]ATOR [facility] Outpatient [id number] Baljit Peters 08/16/2018 08/17/2018 [facility] Outpatient [id number] Baljit Peters 09/02/2018 Active [facility] [employer] [facility] Outpatient [id number] Baljit Lorraine 09/02/2018 09/03/2018 [facility] Outpatient [id number] Abby Ortiz 11/29/2018 [facility] Procedures Procedure Code Date Perfomer Comments Source Removal of intrauterine device (IUD) 77951 06/04/2017 Medical [facility] Insertion of intrauterine device (IUD) 75784 06/04/2017 Medical [facility] Appendectomy [id number] 06/14/2009 [facility] Appendectomy [id number] 06/14/2009 [facility]
--- OUTSIDE RECORDS SUMMARY | 2018-10-31 06:49 | XMS REPORT | Summary of Care ---
Author Author [facility] Organization [facility] Address Unknown Phone Unavailable Encounter HQ Vinicio(FIN) [id number] Date(s): 04/27/17 - 04/27/17 [facility] [address], [address] [phone] Final: examination following delivery Discharge Disposition: Home or Self Care Attending Physician: Baljit Peters MD Vital Signs Most recent to 1 oldest [Reference Range]: Height 162.56 cm (04/27/17 10:32 AM) Blood Pressure 123/88 mmHg [90-140/60-90 mmHg] (04/27/17 10:32 AM) Peripheral Pulse 94 bpm Rate [60-100 bpm] (04/27/17 10:32 AM) Weight 49.091 kg (04/27/17 10:32 AM) Body Mass Index 18.58 m2 (04/27/17 10:32 AM) Problem List Condition Effective Dates Status Health Status Informant Appendicitis(Confirm 2009 Resolved ed) 16 weeks gestation < 10/30/16 Resolved of (Confirmed) Herpes(Confirmed) Resolved (Confirmed) < 02/2016 Resolved (Confirmed) 06/30/16 - 04/09/17 Resolved Allergies, Adverse Reactions, Alerts Substance Reaction Severity Status NKDA Active Medications No Known Medications Results No data available for this section Immunizations Given and Recorded Vaccine Date Status Refusal Reason influenza virus vaccine, inactivated 04/11/17 Given diphtheria/pertussis, acel/tetanus adult 01/26/17 Given Procedures Procedure Date Related Diagnosis Body Site Appendectomy 2009 Social History Social History Type Response Sexual Sexually active: Yes. Sexually active at age 18 Years. Alcohol Past Smoking Status Never smoker; Exposure to Tobacco Smoke None; Cigarette Smoking Last 365 Days No; Reg Smoking Cessation Counseling No Assessment and Plan No data available for this section
--- OUTSIDE RECORDS SUMMARY | 2018-10-31 06:49 | XMS REPORT | Summary of Care ---
Author Author [facility] [employer] [facility] Organization [facility] [employer] Address Unknown Phone Unavailable Encounter HQ [email or web address]_[email or web address](FIN) [id number] Date(s): 01/25/18 - 01/25/18 [facility] [employer] [facility] [address] [facility], [address] [place], [place] [address] [phone] Attending Physician: VISIT, NURSE TMO Vital Signs No data available for this section Problem List Condition Effective Dates Status Health Status Informant Appendicitis(Confirm 2008 Resolved ed) 16 weeks gestation < 10/30/16 Resolved of (Confirmed) Herpes(Confirmed) Resolved (Confirmed) < 02/2016 Resolved (Confirmed) 06/30/16 - 04/09/17 Resolved Allergies, Adverse Reactions, Alerts Substance Reaction Severity Status NKDA Active Medications No data available for this section Results No data available for this section Immunizations Given and Recorded Vaccine Date Status Refusal Reason influenza virus vaccine, inactivated 04/11/17 Given diphtheria/pertussis, acel/tetanus adult 01/26/17 Given Procedures Procedure Date Related Diagnosis Body Site Status Appendectomy 2009 Completed Social History Social History Type Response Sexual Sexually active: Yes. Sexually active at age 18 Years. Alcohol Past Smoking Status Never smoker; Exposure to Tobacco Smoke None; Cigarette Smoking Last 365 Days No; Reg Smoking Cessation Counseling No entered on: 04/07/18 Assessment and Plan No data available for this section
--- OUTSIDE RECORDS SUMMARY | 2018-10-31 06:49 | XMS REPORT | Summary of Care ---
Author Author [facility] Organization [facility] Address Unknown Phone Unavailable Encounter HQ Belkisntr_ursula(FIN) [id number] Date(s): 06/03/17 - 06/03/17 [facility] [address] [facility], [address] [phone] Discharge Disposition: Home or Self Care Attending Physician: VISIT, NURSE TMO Vital Signs [...]
--- OUTSIDE RECORDS SUMMARY | 2018-10-31 06:49 | XMS REPORT | Summary of Care ---
Author Author [facility] Organization [facility] Address Unknown Phone Unavailable Encounter HARLEEN Mooney(HERBERT) [phone] Date(s): 04/08/17 - 04/11/17 [facility] [address] [employer] provided by [facility] [place] [address]- Discharge Disposition: Home or Self Care Attending Physician: Baljit Peters MD Admitting Physician: Baljit Peters MD Vital Signs 1 2 3 Most recent to oldest [Reference Range]: 157.48 cm (04/09/17 2:27 AM) 157.48 cm (04/08/17 6:52 PM) Height 97.9 DegF (04/11/17 3:11 PM) 98.3 DegF (04/11/17 7:55 AM) 98.3 DegF (04/11/17 12:06 AM) Temperature Oral [96.4-99.1 DegF] 126/78 mmHg (04/11/17 3:11 PM) 120/76 mmHg (04/11/17 7:55 AM) 128/84 mmHg (04/11/17 12:06 AM) Blood Pressure [90-140/60-90 mmHg] 18 BRMIN (04/11/17 3:11 PM) 18 BRMIN (04/11/17 7:55 AM) 18 BRMIN (04/11/17 12:06 AM) Respiratory Rate [14-20 BRMIN] 86 bpm (04/11/17 3:11 PM) 76 bpm (04/11/17 7:55 AM) 84 bpm (04/11/17 12:06 AM) Peripheral Pulse Rate [60-100 bpm] 60 kg (04/09/17 2:27 AM) 59.545 kg (04/08/17 6:52 PM) Weight 24.19 m2 (04/09/17 2:27 AM) 24.01 m2 (04/08/17 6:52 PM) Body Mass Index Problem List Condition Effective Dates Status Health Status Informant Appendicitis(Confirm 2009 Resolved ed) 16 weeks gestation < 10/30/16 Resolved of (Confirmed) Herpes(Confirmed) Resolved (Confirmed) < 02/2016 Resolved (Confirmed) 06/30/16 - 04/09/17 Resolved Allergies, Adverse Reactions, Alerts Substance Reaction Severity Status NKDA Active Medications acetaminophen 650 mg, Route: PO, Drug form: TAB, Q4H, Dosing Weight 60, kg, PRN Other -See Com ment, Start date: 04/09/17 16:53:00 CDT, Duration: 30 day, Stop date: 05/09/17 1 6:52:00 [place] Start Date: 04/09/17 Stop Date: 04/09/17 Status: Discontinued acetaminophen 1,000 mg, 2 tab, Route: PO, Drug form: TAB, Q6Hnow, Dosing Weight 60, kg, Start date: 04/09/17 22:27:00 CDT, Duration: 24 hr, Stop date: 04/10/17 16:27:00 CDT Notes: Max acetaminophen 4000 mg/day (4 gm/day). (Same as: Tylenol Extra Streng th) Start Date: 04/09/17 Stop Date: 04/10/17 Status: Pending Complete acetaminophen (ANES) Route: IV, Drug form: INJ, ONCE, Stop date: 04/09/17 16:56:00 CDT Start Date: 04/09/17 Stop Date: 04/09/17 Status: Completed acetaminophen-hydrocodone 325 mg-10 mg oral tablet 1 tab, PO, Q4H, PRN Pain Score 7-10, 0 Refill(s) Start Date: 04/11/17 Status: Ordered acetaminophen-hydrocodone 325 mg-10 mg oral tablet 1 tab, Route: PO, Drug Form: TAB, Dosing Weight 60, kg, Q4H, PRN Pain Score 7-10 , NOW, Start date: 04/10/17 14:32:00 CDT, Duration: 30 day, Stop date: 05/10/17 14:31:00 [place] Notes: Do not exceed 4gm/day of acetaminophen. (Same as: [place] 325/10) Start Date: 04/10/17 Stop Date: 04/11/17 Status: Discontinued acetaminophen-hydrocodone 325 mg-10 mg oral tablet 1 tab, Route: PO, Dosing Weight 60, kg, Q4H, PRN Pain Score 7-10, Start date: 16:53:00 CDT, Duration: 30 day, Stop date: 05/09/17 16:52:00 [place] Start Date: 04/09/17 Stop Date: 04/09/17 Status: Discontinued acetaminophen-hydrocodone 325 mg-5 mg oral tablet 2 tab, Route: PO, Drug Form: TAB, Dosing Weight 59.545, kg, Q4H, PRN Pain Score 7-10, NOW, Start date: 04/10/17 14:32:00 CDT, Duration: 30 day, Stop date: 05/10 14:31:00 [place] Notes: (Same as: [place] 325/5) Do not exceed 4gm/day of acetaminophen. Start Date: 04/10/17 Stop Date: 04/11/17 Status: Discontinued acetaminophen-hydrocodone 325 mg-5 mg oral tablet 1 tab, Route: PO, Drug Form: TAB, Dosing Weight 59.545, kg, Q4H, PRN Pain Score 4-6, Start date: 04/10/17 16:51:00 CDT, Duration: 30 day, Stop date: 05/10/17 16 :50:00 [place] Notes: (Same as: [place] 325/5) Do not exceed 4gm/day of acetaminophen. Start Date: 04/10/17 Stop Date: 04/09/17 Status: Discontinued acetaminophen-hydrocodone 325 mg-5 mg oral tablet 1 tab, Route: PO, Drug Form: TAB, Dosing Weight 60, kg, Q4H, PRN Pain Score 4-6, NOW, Start date: 04/10/17 14:32:00 CDT, Duration: 30 day, Stop date: 05/10/17 1 4:31:00 [place] Notes: (Same as: [place] 325/5) Do not exceed 4gm/day of acetaminophen. Start Date: 04/10/17 Stop Date: 04/11/17 Status: Discontinued acetaminophen-hydrocodone 325 mg-5 mg oral tablet 1 tab, Route: PO, Dosing Weight 60, kg, Q4H, PRN Pain Score 4-6, Start date: 16:53:00 CDT, Duration: 30 day, Stop date: 05/09/17 16:52:00 [place] Start Date: 04/09/17 Stop Date: 04/09/17 Status: Discontinued acetaminophen-hydrocodone 325 mg-5 mg oral tablet 2 tab, Route: PO, Drug Form: TAB, Dosing Weight 59.545, kg, Q4H, PRN Pain Score 7-10, Start date: 04/08/17 19:34:00 CDT, Duration: 30 day, Stop date: 05/08/17 1 9:33:00 [place] Notes: (Same as: [place] 325/5) Do not exceed 4gm/day of acetaminophen. Start Date: 04/08/17 Stop Date: 04/09/17 Status: Discontinued acetaminophen-hydrocodone 325 mg-5 mg oral tablet 1 tab, Route: PO, Drug Form: TAB, Dosing Weight 59.545, kg, Q4H, PRN Pain Score 4-6, Start date: 04/08/17 19:34:00 CDT, Duration: 30 day, Stop date: 05/08/17 19 :33:00 [place] Notes: (Same as: [place] 325/5) Do not exceed 4gm/day of acetaminophen. Start Date: 04/08/17 Stop Date: 04/09/17 Status: Discontinued azithromycin (ANES) Route: IV, Drug form: INJ, ONCE, Stop date: 04/09/17 16:56:00 CDT Start Date: 04/09/17 Stop Date: 04/09/17 Status: Completed benzocaine-menthol topical 1 lozenge, Route: PO, Drug Form: SARITA, Dosing Weight 60, kg, PRN, PRN Sore Throat , Start date: 04/09/17 16:53:00 CDT, Duration: 30 day, Stop date: 05/09/17 15:52 :00 [place] Notes: Cepacol lozengesDispense 1 box=16 lozenges (Same As: Cepacol Lozenges) Start Date: 04/09/17 Stop Date: 04/11/17 Status: Discontinued bisacodyl 10 mg, 1 supp, Route: WA, Drug form: SUPP, PRN, Dosing Weight 60, kg, PRN Other -See Comment, Start date: 04/09/17 16:53:00 CDT, Duration: 30 day, Stop date: 15:52:00 [place] Notes: (Same As: Dulcolax, Bisco-Lax) Start Date: 04/09/17 Stop Date: 04/11/17 Status: Discontinued bupivacaine (ANES) Route: INTRATHECAL, Drug Form: INJ, ONCE, Stop date: 04/09/17 16:50:00 CDT Start Date: 04/09/17 Stop Date: 04/09/17 Status: Completed butorphanol 2 mg, 1 mL, Route: IVP, Drug form: INJ, Q2H, Dosing Weight 59.545, kg, PRN Pain Score 7-10, Start date: 04/08/17 19:34:00 CDT, Duration: 30 day, Stop date: 04/15 10/28 19:33:00 [place] Notes: (Same As: Stadol) MEDICATION WASTE Product Size: 2 mgProduct Was césar: ___ mg Start Date: 04/08/17 Stop Date: 04/09/17 Status: Discontinued butorphanol 1 mg, 0.5 mL, Route: IVP, Drug form: INJ, Q2H, Dosing Weight 59.545, kg, PRN Jennifer n Score 4-6, Start date: 04/08/17 19:34:00 CDT, Duration: 30 day, Stop date: 19:33:00 [place] Notes: (Same As: Stadol) MEDICATION WASTE Product Size: 2 mgProduct Was césar: __1_ mg Start Date: 04/08/17 Stop Date: 04/09/17 Status: Discontinued carboprost 250 microgram, 1 mL, Route: IM, Drug form: INJ, ONCALL, Dosing Weight 59.545, kg , Start date: 04/08/17 20:00:00 CDT, Duration: 30 day, Stop date: 05/08/17 18:59 :00 [place] Notes: (Same As: Hemabate) Start Date: 04/08/17 Stop Date: 04/09/17 Status: Discontinued ceFAZolin (ANES) Route: IV, Drug form: INJ, ONCE, Stop date: 04/09/17 16:45:00 CDT Start Date: 04/09/17 Stop Date: 04/09/17 Status: Completed Cervidil 10 mg, 1 supp, Route: VAG, Drug form: SUPP, ONCE, Dosing Weight 59.545, kg, Star t date: 04/08/17 19:36:00 CDT, Duration: 1 doses or times, Stop date: 04/08/17 1 9:36:00 CDT Notes: (Same as: Cervidil) Start Date: 04/08/17 Stop Date: 04/09/17 Status: Completed citric acid-sodium citrate 30 mL, Route: PO, Drug Form: SOLN, Dosing Weight 59.545, kg, ONCALL, Start date: 04/08/17 20:00:00 CDT, Duration: 30 day, Stop date: 05/08/17 18:59:00 [place] Notes: (Same As: Bicitra, Cytra-2) Sodium citrate-citric acid (500-334 mg/5 mL): 1 mL contains sodium 1 mEq/mL and bicarbonate 1 mEq/mL Start Date: 04/08/17 Stop Date: 04/09/17 Status: Discontinued dexamethasone (ANES) Route: IV, Drug form: INJ, ONCE, Stop date: 04/09/17 16:50:00 CDT Start Date: 04/09/17 Stop Date: 04/09/17 Status: Completed diphenhydrAMINE (ANES) Route: IV, Drug form: INJ, ONCE, Stop date: 04/09/17 16:50:00 CDT Start Date: 04/09/17 Stop Date: 04/09/17 Status: Completed docusate 100 mg, 1 cap, Route: PO, Drug form: CAP, BID, Dosing Weight 60, kg, Start date: 04/09/17 17:00:00 CDT, Duration: 30 day, Stop date: 05/09/17 9:00:00 [place] Notes: (Same as: Colace) (Do Not Crush) Start Date: 04/09/17 Stop Date: 04/11/17 Status: Discontinued docusate sodium 100 mg oral capsule 100 mg=1 cap, PO, BID, # 60 cap, 1 Refill(s), Pharmacy: [facility] Start Date: 04/11/17 Status: Ordered famotidine 20 mg, 2 mL, Route: IVP, Drug form: INJ, ONCALL, Dosing Weight 59.545, kg, Start date: 04/08/17 20:00:00 CDT, Duration: 30 day, Stop date: 05/08/17 18:59:00 [place] Notes: (Same as: Pepcid)Can be dilute in 5-10cc NS IVP: Slow IV push over at le ast 2 minutes. Start Date: 04/08/17 Stop Date: 04/09/17 Status: Discontinued famotidine (ANES) Route: IV, Drug form: INJ, ONCE, Stop date: 04/09/17 16:35:00 CDT Start Date: 04/09/17 Stop Date: 04/09/17 Status: Completed fentaNYL (ANES) Route: INTRATHECAL, Drug form: INJ, ONCE, Stop date: 04/09/17 16:50:00 CDT Start Date: 04/09/17 Stop Date: 04/09/17 Status: Completed ibuprofen 600 mg, 1 tab, Route: PO, Drug form: TAB, Q6H, Dosing Weight 60, kg, Start date: 04/09/17 18:00:00 CDT, Duration: 30 day, Stop date: 05/09/17 12:00:00 [place] Notes: (Same as: Motrin)"Do Not Crush" Take with food. Start Date: 04/09/17 Stop Date: 04/11/17 Status: Discontinued ibuprofen 600 mg, 1 tab, Route: PO, Drug form: TAB, Q6H, Dosing Weight 59.545, kg, PRN Oth er -See Comment, Start date: 04/08/17 19:34:00 CDT, Duration: 30 day, Stop date: 05/08/17 19:33:00 [place] Notes: (Same as: Motrin)"Do Not Crush" Take with food. Start Date: 04/08/17 Stop Date: 04/09/17 Status: Discontinued ibuprofen 600 mg oral tablet 600 mg=1 tab, PO, Q6H, # 40 tab, 1 Refill(s), Pharmacy: [facility] Start Date: 04/11/17 Status: Ordered influenza virus vaccine, inactivated 0.5 mL, Route: IM, Drug Form: SUSP, Daily, Start date: 04/10/17 9:00:00 CDT, Dur ation: 1 doses or times, Stop date: 04/10/17 9:00:00 CDT Notes: (Same as: Fluzone Quadrivalent, Fluarix Quadrivalent)For 3 years of age a nd older (0.5 mL IM)Shake well before use Start Date: 04/10/17 Stop Date: 04/11/17 Status: Deleted influenza virus vaccine, inactivated 0.5 mL, Route: IM, Drug Form: SUSP, Daily, Start date: 04/11/17 16:00:00 CDT, Du ration: 1 doses or times, Stop date: 04/11/17 16:00:00 CDT Notes: (Same as: Fluzone Quadrivalent, Fluarix Quadrivalent)For 3 years of age a nd older (0.5 mL IM)Shake well before use Start Date: 04/11/17 Stop Date: 04/11/17 Status: Completed ketOROLAC 30 mg, 1 mL, Route: IVP, Drug form: INJ, Q6H, Dosing Weight 60, kg, PRN Pain Sco re 4-6, Start date: 04/09/17 16:49:00 CDT, Duration: 24 hr, Stop date: 04/10/17 16:48:00 CDT Notes: (Same as:Toradol) IV bolus must be given >15 seconds. Give IM administration slowly and deeply into the muscle.Not for use > 4 days MEDICATION WASTE Product Size: 30 mgProduct Wasted: ___ mg Start Date: 04/09/17 Stop Date: 04/10/17 Status: Completed Lactated Ringers (Bolus) IV 1,000 mL, 1,000 ml/hr, Infuse Over: 1 hr, Route: IV, 1,000, Drug form: INJ, ONCE , Dosing Weight 59.545 kg, Start date: 04/08/17 19:34:00 CDT, Stop date: 7 19:34:00 CDT, Bolus for regional anesthesia per unit protocol Start Date: 04/08/17 Stop Date: 04/09/17 Status: Discontinued Lactated Ringers 1,000 mL 1,000 mL, Rate: 100 ml/hr, Infuse over: 10 hr, Route: IV, Dosing Weight 60 kg, T otal Volume: 1,000, Start date: 04/09/17 16:53:00 CDT, Duration: 30 day, Stop da te: 05/09/17 16:52:00 [place] Start Date: 04/09/17 Stop Date: 04/11/17 Status: Discontinued Lactated Ringers 1,000 mL 1,000 mL, Rate: 125 ml/hr, Infuse over: 8 hr, Route: IV, Dosing Weight 59.545 kg , Total Volume: 1,000, Start date: 04/08/17 19:34:00 CDT, Duration: 30 day, Stop date: 05/08/17 19:33:00 [place] Start Date: 04/08/17 Stop Date: 04/09/17 Status: Discontinued lanolin topical cream 1 appl, Route: TOP, PRN, Drug form: OINT, PRN Other -See Comment, Start date: 16:53:00 CDT, Duration: 30 day, Stop date: 05/09/17 15:52:00 [place] Notes: (Same as:Lanolin) Start Date: 04/09/17 Stop Date: 04/11/17 Status: Discontinued lidocaine 1% 200 mg, 20 mL, Route: PERCUT, Drug Form: INJ, Dosing Weight 59.545, kg, PRN, PRN Other -See Comment, Start date: 04/08/17 19:34:00 CDT, Duration: 1 doses or mohan es, Stop date: Limited # of times Notes: (Same as: Xylocaine) Start Date: 04/08/17 Stop Date: 04/09/17 Status: Discontinued lidocaine 1% injectable solution 0.25 mL, Route: INTRADERM, Drug Form: INJ, Dosing Weight 59.545, kg, PRN, PRN Ot her -See Comment, Start date: 04/08/17 19:34:00 CDT, Duration: 30 day, Stop date : 05/08/17 18:33:00 [place] Notes: Preservative free. (Same as: Xylocaine MPF) Start Date: 04/08/17 Stop Date: 04/09/17 Status: Discontinued LR 1000 mL INJ (ANES) Route: IV, Total Volume: 1,000, Start date: 04/09/17 15:58:00 CDT, Stop date: 16:58:00 CDT Start Date: 04/09/17 Stop Date: 04/09/17 Status: Completed M-M-R II 0.5 mL, Route: SUB-Q, Drug Form: PDR/INJ, Dosing Weight 60, kg, ONCALL, Start da te: 04/09/17 17:00:00 CDT, Duration: 1 doses or times, Stop date: 04/21/17 0:00: 00 [place] Notes: (Same as: M-M-R II) (yfeshsf-rvvwj-lucpkdx virus vaccine 0.5 ml INJ VL)WV CA: F/P - Red; E -Red GIVE PRIOR TO DISCHARGE Start Date: 04/09/17 Stop Date: 04/11/17 Status: Discontinued meperidine 12.5 mg, 0.25 mL, Route: IVP, Drug form: INJ, ONCE, Dosing Weight 60, kg, Start date: 04/09/17 16:49:00 CDT, Stop date: 04/09/17 16:49:00 CDT Notes: (Same as: Demerol) "Use Precaution in Elderly, Seizure disorders, and Re nal impairment" Start Date: 04/09/17 Stop Date: 04/09/17 Status: Ordered methylergonovine 0.2 mg, 1 mL, Route: IM, Drug form: INJ, ONCALL, Dosing Weight 59.545, kg, Start date: 04/08/17 20:00:00 CDT, Duration: 30 day, Stop date: 05/08/17 18:59:00 [place] Notes: (Same as:Methergine) Start Date: 04/08/17 Stop Date: 04/09/17 Status: Discontinued misoprostol 1,000 microgram, 5 tab, Route: WA, Drug form: TAB, ONCALL, Dosing Weight 59.545, kg, Start date: 04/08/17 20:00:00 CDT, Duration: 1 doses or times Notes: (Same as:Cytotec) Take with food Start Date: 04/08/17 Stop Date: 04/09/17 Status: Discontinued morphine Sulfate (ANES) Route: INTRATHECAL, Drug form: INJ, ONCE, Stop date: 04/09/17 16:50:00 CDT Start Date: 04/09/17 Stop Date: 04/09/17 Status: Completed naloxone 0.4 mg, 1 mL, Route: IVP, Drug form: INJ, ONCALL, Dosing Weight 60, kg, Start da te: 04/09/17 17:00:00 CDT, Duration: 24 hr, Stop date: 04/10/17 16:59:00 CDT Notes: Same as Narcan Start Date: 04/09/17 Stop Date: 04/11/17 Status: Discontinued ondansetron 4 mg, 2 mL, Route: IVP, Drug form: INJ, Q8H, Dosing Weight 59.545, kg, PRN Nause a & Vomiting, Start date: 04/08/17 19:34:00 CDT, Duration: 30 day, Stop date: 05/08/17 19:33:00 [place] Notes: (Same as: Dorys) MEDICATION WASTE Product Size: 4 mgProduct Was césar: ___ mg Start Date: 04/08/17 Stop Date: 04/09/17 Status: Discontinued ondansetron 4 mg, 2 mL, Route: IVP, Drug form: INJ, Q6H, Dosing Weight 60, kg, PRN Nausea & Vomiting, Start date: 04/09/17 16:49:00 CDT, Duration: 24 hr, Stop date: 16:48:00 CDT Notes: (Same as: Dorys) MEDICATION WASTE Product Size: 4 mgProduct Was césar: ___ mg Start Date: 04/09/17 Stop Date: 04/10/17 Status: Completed ondansetron (ANES) Route: IV, Drug form: INJ, ONCE, Stop date: 04/09/17 16:35:00 CDT Start Date: 04/09/17 Stop Date: 04/09/17 Status: Completed oxytocin 30 units/NS 500 ml 30 unit 30 unit, 500 mL, Rate: 42 ml/hr, Infuse over: 11.9 hr, Dosing Weight 60, kg, Rou te: IV, Total Volume: 500 mL, Start date: 04/09/17 16:53:00 CDT, Duration: 2 day , Stop date: 04/11/17 16:52:00 CDT, Replace Every: 11.9 hr Start Date: 04/09/17 Stop Date: 04/11/17 Status: Completed oxytocin 30 units/NS 500 ml 30 unit 30 unit, 500 mL, Rate: 42 ml/hr, Infuse over: 11.9 hr, Dosing Weight 59.545, kg, Route: IV, Total Volume: 500 mL, Start date: 04/08/17 19:34:00 CDT, Duration: 2 day, Stop date: 04/10/17 19:33:00 CDT, Replace Every: 11.9 hr Start Date: 04/08/17 Stop Date: 04/09/17 Status: Discontinued phenylephrine (ANES) Route: IV, Drug form: INJ, ONCE, Stop date: 04/09/17 16:56:00 CDT Start Date: 04/09/17 Stop Date: 04/09/17 Status: Completed Pitocin (ANES) Route: IVP, Drug form: SOLN, ONCE, Stop date: 04/09/17 16:56:00 CDT Start Date: 04/09/17 Stop Date: 04/09/17 Status: Completed Pitocin (ANES) (ANES) + Route: IVPB, Drug form: SOLN, Dosing Weight 60, kg, Start date: 04/09/17 16:27:0 0 CDT, Stop date: 04/09/17 17:27:00 CDT Start Date: 04/09/17 Stop Date: 04/09/17 Status: Completed Multivitamins oral tablet 1 tab, Route: PO, Drug Form: TAB, Dosing Weight 60, kg, Daily, Start date: 04/10 9:00:00 CDT, Duration: 30 day, Stop date: 05/09/17 9:00:00 [place] Start Date: 04/10/17 Stop Date: 04/11/17 Status: Discontinued promethazine 6.25 mg, 0.25 mL, Route: IVPB, Drug form: INJ, Q6H, Dosing Weight 60, kg, PRN Na usea & Vomiting, Start date: 04/09/17 16:49:00 CDT, Duration: 24 hr, Stop date: 04/10/17 16:48:00 CDT Notes: Do not give IV push. (Same as: Phenergan) Start Date: 04/09/17 Stop Date: 04/10/17 Status: Completed promethazine (ANES) Route: IV, Drug form: INJ, ONCE, Stop date: 04/09/17 16:56:00 CDT Start Date: 04/09/17 Stop Date: 04/09/17 Status: Completed Remove - dinoprostone (Cervidil) insert 1 ea, Route: VAG, Drug Form: INS, Dosing Weight 59.545, kg, ONCALL, Start date: 04/09/17 8:00:00 CDT, Duration: 30 day, Stop date: 05/09/17 6:59:00 [place] Notes: Vaginal insert: to be removed 1 hour prior to oxytocin administration or 12 hours after insertion. Start Date: 04/09/17 Stop Date: 04/09/17 Status: Completed simethicone 160 mg, 2 tab, Route: PO, Drug form: CHEWTAB, Q8H, Dosing Weight 60, kg, PRN Gas , Start date: 04/09/17 16:53:00 CDT, Duration: 30 day, Stop date: 05/09/17 16:52 :00 [place] Notes: (Same as: Mylicon) Start Date: 04/09/17 Stop Date: 04/11/17 Status: Discontinued sodium citrate (ANES) Route: PO, Drug Form: INJ, ONCE, Stop date: 04/09/17 16:35:00 CDT Start Date: 04/09/17 Stop Date: 04/09/17 Status: Completed Tender Care topical ointment See Instructions, Apply to area as needed, # 1 tube, 1 Refill(s), Pharmacy: [facility] Start Date: 04/11/17 Status: Ordered terbutaline 0.25 mg, 0.25 mL, Route: SUB-Q, Drug form: INJ, PRN, Dosing Weight 59.545, kg, P RN Other -See Comment, Start date: 04/08/17 19:34:00 CDT, Duration: 1 doses or t imes, Stop date: Limited # of times Notes: DO NOT USE IN SOFTWARE [employer] ENGINEER AREA(Same As: Brethine) Start Date: 04/08/17 Stop Date: 04/09/17 Status: Discontinued tetanus/diphth/pertussis (Tdap) adult/adol 5 units-2 units-15.5 mcg/0.5 mL intra muscular suspension 0.5 mL, Route: IM, Drug Form: SUSP, Dosing Weight 60, kg, ONCALL, Start date: 17:00:00 CDT, Duration: 1 doses or times, Stop date: 04/19/17 0:00:00 [place] Notes: (Tdap ) For Adolecent and Adult use For IM Use. Same as: Adacel (Tdap) Start Date: 04/09/17 Stop Date: 04/11/17 Status: Discontinued Tylenol 650 mg, 2 tab, Route: PO, Drug form: TAB, Q4H, Dosing Weight 60, kg, PRN Other - See Comment, Start date: 04/10/17 17:32:00 CDT, Duration: 30 day, Stop date: 17:31:00 [place] Notes: Do not exceed 4 gm/day. (Same as: Tylenol) Start Date: 04/10/17 Stop Date: 04/11/17 Status: Discontinued zolpidem 5 mg, 1 tab, Route: PO, Drug form: TAB, Bedtime, Dosing Weight 60, kg, PRN Insom helen, Start date: 04/09/17 16:53:00 CDT, Duration: 30 day, Stop date: 05/09/17 16 :52:00 [place] Notes: (Same As: Ambien) Start Date: 04/09/17 Stop Date: 04/11/17 Status: Discontinued Results BLOOD BANK RESULTS Most recent to 1 2 oldest [Reference Range]: ABO/Rh O POS *Unknown* (04/08/17 8:30 PM) Antibody Scrn Negative (04/08/17 8:30 PM) IMMUNOLOGY Most recent to 1 2 oldest [Reference Range]: Treponemal Scr [Non Non Reactive Reactive] *NA* (04/08/17 8:30 PM) HIV. [Negative] Negative *NA* (04/08/17 8:30 PM) Hep Bs Ag [Negative] Negative *NA* (04/08/17 8:30 PM) HEMATOLOGY Most recent to 1 2 oldest [Reference Range]: WBC [3.7-10.4 K/CMM] 7.8 K/CMM (04/08/17 8:30 PM) RBC [4.20-5.40 3.61 M/CMM M/CMM] *LOW* (04/08/17 8:30 PM) Hgb [12.0-16.0 g/dL] 10.3 g/dL 11.5 g/dL *LOW* *LOW* (04/10/17 6:09 AM) (04/08/17 8:30 PM) Hct [36.0-48.0 %] 29.6 % 33.4 % *LOW* *LOW* (04/10/17 6:09 AM) (04/08/17 8:30 PM) MCV [80.0-98.0 fL] 92.6 fL (04/08/17 8:30 PM) MCH [27.0-31.0 pg] 32.0 pg *HI* (04/08/17 8:30 PM) MCHC [32.0-36.0 34.5 g/dL g/dL] (04/08/17 8:30 PM) RDW [11.5-14.5 %] 14.9 % *HI* (04/08/17 8:30 PM) Platelet [133-450 163 K/CMM K/CMM] (04/08/17 8:30 PM) MPV [7.4-10.4 fL] 8.5 fL (04/08/17 8:30 PM) Segs [45.0-75.0 %] 64.7 % (04/08/17 8:30 PM) Lymphocytes 27.0 % [20.0-40.0 %] (04/08/17 8:30 PM) Monocytes [2.0-12.0 7.8 % %] (04/08/17 8:30 PM) Eosinophils [0.0-4.0 0.3 % %] (04/08/17 8:30 PM) Basophils [0.0-1.0 0.2 % %] (04/08/17 8:30 PM) Segs-Bands # 5.1 K/CMM [1.5-8.1 K/CMM] (04/08/17 8:30 PM) Lymphocytes # 2.1 K/CMM [1.0-5.5 K/CMM] (04/08/17 8:30 PM) Monocytes # [0.0-0.8 0.6 K/CMM K/CMM] (04/08/17 8:30 PM) Immunizations Given and Recorded Vaccine Date Status Refusal Reason diphtheria/pertussis, acel/tetanus adult 01/26/17 Given influenza virus vaccine, inactivated 04/11/17 Given Procedures Procedure Date Related Diagnosis Body [...]
--- OUTSIDE RECORDS SUMMARY | 2018-10-31 06:49 | XMS REPORT | Summary of Care ---
Author Author [facility] [place] [facility] Address Unknown Phone Unavailable Encounter [facility] Stellar_ursula(FIN) [id number] Date(s): 05/25/17 - 05/25/17 [facility] [place] [address] [facility], [address] [phone] Attending Physician: Baljit Peters MD Vital Signs No data available for this [...]
--- OUTSIDE RECORDS SUMMARY | 2018-10-31 06:49 | XMS REPORT | Summary of Care ---
Author Author [facility] Organization [facility] [employer] [facility] Address Unknown Phone Unavailable Encounter HARLEEN Mooney(HERBERT) [id number] Date(s): 05/20/17 - 05/20/17 [facility] [employer] [facility] [address] [facility], [address] [phone] Final: 6 weeks follow-up Final: Contraception management Discharge Disposition: Home or Self Care Attending Physician: Baljit Peters MD Vital Signs Most recent to 1 oldest [Reference Range]: Height 157.48 cm (05/20/17 11:51 AM) Blood Pressure 115/80 mmHg [90-140/60-90 mmHg] (05/20/17 11:51 AM) Peripheral Pulse 76 bpm Rate [60-100 bpm] (05/20/17 11:51 AM) Weight 49.091 kg (05/20/17 11:51 AM) Body Mass Index 19.79 m2 (05/20/17 11:51 AM) Problem List Condition Effective Dates Status [...]
--- OUTSIDE RECORDS SUMMARY | 2018-10-31 06:49 | XMS REPORT | Summary of Care ---
Author Author [facility] Organization [facility] Address Unknown Phone Unavailable Encounter HARLEEN Mooney(HERBERT) [id number] Date(s): 01/21/17 - 01/21/17 [facility] [address] [employer] provided by [employer] [place] [place] [address]- Discharge Diagnosis: 29 weeks gestation of Discharge Disposition: Home or Self Care Attending Physician: Pily Abraham MD Vital Signs 1 2 3 Most recent to oldest [Reference Range]: 157.48 cm (01/21/17 2:23 PM) Height 97.9 DegF (01/21/17 2:23 PM) 97.6 DegF (01/21/17 2:10 PM) Temperature Oral [96.4-99.1 DegF] 97/56 mmHg (01/21/17 3:15 PM) 104/60 mmHg (01/21/17 2:45 PM) 113/67 mmHg (01/21/17 2:23 PM) Blood Pressure [90-140/60-90 mmHg] 16 BRMIN (01/21/17 2:23 PM) 18 BRMIN (01/21/17 2:10 PM) Respiratory Rate [14-20 BRMIN] 89 bpm (01/21/17 3:15 PM) 92 bpm (01/21/17 2:45 PM) 85 bpm (01/21/17 2:23 PM) Peripheral Pulse Rate [60-100 bpm] 54.545 kg (01/21/17 2:23 PM) Weight 21.99 m2 (01/21/17 2:23 PM) Body Mass Index Problem List Condition Effective Dates Status Health Status Informant 16 weeks gestation < 10/30/16 Resolved of (Confirmed) Herpes(Confirmed) Resolved (Confirmed) < 02/2016 Resolved (Confirmed) 06/30/16 Active Allergies, Adverse Reactions, Alerts Substance Reaction Severity Status NKDA Active Medications ferrous sulfate 325 mg oral enteric coated tablet 325 mg=1 tab, PO, BID, give with orange juice, # 60 tab, 1 Refill(s), Pharmacy: [facility] Start Date: 01/21/17 Status: Ordered Lactated Ringers 1,000 mL 1,000 mL, Rate: 125 ml/hr, Infuse over: 8 hr, Route: IV, Dosing Weight 54.545 kg , Total Volume: 1,000, Start date: 01/21/17 14:27:00 CDT, Duration: 30 day, Stop date: 02/20/17 14:26:00 CDT Start Date: 01/21/17 Stop Date: 01/22/17 Status: Discontinued Results ELECTROLYTES Most recent to 1 oldest [Reference Range]: Sodium Lvl [135-145 140 mEq/L mEq/L] (01/21/17 2:38 PM) Potassium Lvl 3.7 mEq/L [3.5-5.1 mEq/L] (01/21/17 2:38 PM) Chloride Lvl [95-109 105 mEq/L mEq/L] (01/21/17 2:38 PM) CO2 [24-32 mEq/L] 24 mEq/L (01/21/17 2:38 PM) AGAP [10.0-20.0 14.7 mEq/L mEq/L] (01/21/17 2:38 PM) CHEM PANEL Most recent to 1 oldest [Reference Range]: Creatinine Lvl 0.55 mg/dL [0.50-1.40 mg/dL] (01/21/17 2:38 PM) eGFR 136 mL/min/1.73m2 1 *NA* (01/21/17 2:38 PM) BUN [7-22 mg/dL] 8 mg/dL (01/21/17 2:38 PM) B/C Ratio [6-25] 15 (01/21/17 2:38 PM) Glucose Lvl [70-99 83 mg/dL mg/dL] (01/21/17 2:38 PM) Total Protein 6.6 g/dL [6.4-8.4 g/dL] (01/21/17 2:38 PM) Albumin Lvl [3.5-5.0 2.8 g/dL g/dL] *LOW* (01/21/17 2:38 PM) Globulin [2.7-4.2 3.8 g/dL g/dL] (01/21/17 2:38 PM) A/G Ratio [0.7-1.6] 0.7 (01/21/17 2:38 PM) Calcium Lvl 9.1 mg/dL [8.5-10.5 mg/dL] (01/21/17 2:38 PM) Magnesium Lvl 1.9 mg/dL [1.8-2.4 mg/dL] (01/21/17 2:38 PM) ALT [0-65 unit/L] 20 unit/L (01/21/17 2:38 PM) AST [0-37 unit/L] 19 unit/L (01/21/17 2:38 PM) Alk Phos [39-136 88 unit/L unit/L] (01/21/17 2:38 PM) Bili Total [0.2-1.3 0.2 mg/dL mg/dL] (01/21/17 2:38 PM) 1Result Comment: The eGFR is calculated using the [...] from the National Kidney Disease Education Program ( NKDEP) which additionally recommends that when the eGFR is used in patients with extremes of body mass index for purposes of drug dosing, the eGFR should be mul tiplied by the estimated BMI. HEMATOLOGY Most recent to 1 oldest [Reference Range]: WBC [3.7-10.4 K/CMM] 8.4 K/CMM (01/21/17 2:38 PM) RBC [4.20-5.40 3.24 M/CMM M/CMM] *LOW* (01/21/17 2:38 PM) Hgb [12.0-16.0 g/dL] 10.2 g/dL *LOW* (01/21/17 2:38 PM) Hct [36.0-48.0 %] 30.2 % *LOW* (01/21/17 2:38 PM) MCV [80.0-98.0 fL] 93.3 fL (01/21/17 2:38 PM) MCH [27.0-31.0 pg] 31.4 pg *HI* (01/21/17 2:38 PM) MCHC [32.0-36.0 33.7 g/dL g/dL] (01/21/17 2:38 PM) RDW [11.5-14.5 %] 12.9 % (01/21/17 2:38 PM) Platelet [133-450 233 K/CMM K/CMM] (01/21/17 2:38 PM) MPV [7.4-10.4 fL] 8.2 fL (01/21/17 2:38 PM) Segs [45.0-75.0 %] 70.4 % (01/21/17 2:38 PM) Lymphocytes 22.9 % [20.0-40.0 %] (01/21/17 2:38 PM) Monocytes [2.0-12.0 6.3 % %] (01/21/17 2:38 PM) Eosinophils [0.0-4.0 0.2 % %] (01/21/17 2:38 PM) Basophils [0.0-1.0 0.2 % %] (01/21/17 2:38 PM) Segs-Bands # 5.9 K/CMM [1.5-8.1 K/CMM] (01/21/17 2:38 PM) Lymphocytes # 1.9 K/CMM [1.0-5.5 K/CMM] (01/21/17 2:38 PM) Monocytes # [0.0-0.8 0.5 K/CMM K/CMM] (01/21/17 2:38 PM) Immunizations No data available for this section Procedures Procedure Date Related Diagnosis Body Site Appendectomy 2009 Social History Social History Type Response Sexual Sexually active: Yes. Sexually active at age 18 Years. Alcohol Past Smoking Status Never smoker; Exposure to Tobacco Smoke None; Cigarette Smoking Last 365 Days No; Reg Smoking Cessation Counseling No Assessment and Plan No data available for this section
--- OUTSIDE RECORDS SUMMARY | 2018-10-31 06:49 | XMS REPORT | Summary of Care ---
Author Author [facility] [place] [facility] [place] Address Unknown Phone Unavailable Encounter HQ Stellar_ursula(FIN) [id number] Date(s): 01/25/18 - 01/25/18 [facility] [place] [address] [facility], [address] [phone] Attending Physician: Baljit Peters [...]
--- OUTSIDE RECORDS SUMMARY | 2018-10-31 06:49 | XMS REPORT | Summary of Care ---
Author Author [facility] [place] Organization [facility] [place] Address Unknown Phone Unavailable Encounter HARLEEN Mooney(HERBERT) [id number] Date(s): 06/03/17 - 06/03/17 [facility] [place] [address] [facility], [address] [phone] Final: Post- depression Discharge Disposition: Home or Self Care Attending Physician: Baljit Peters MD Vital Signs Most recent to 1 oldest [Reference Range]: Height 157.48 cm (06/03/17 3:10 PM) Blood Pressure 122/84 mmHg [90-140/60-90 mmHg] (06/03/17 3:10 PM) Peripheral Pulse 80 bpm Rate [60-100 bpm] (06/03/17 3:10 PM) Weight 49.091 kg (06/03/17 3:10 PM) Body Mass Index 19.79 m2 (06/03/17 3:10 PM) Problem List Condition Effective Dates Status Health Status Informant Appendicitis(Confirm 2009 Resolved ed) 16 weeks gestation < 10/30/16 Resolved of (Confirmed) Herpes(Confirmed) Resolved (Confirmed) < 02/2016 Resolved (Confirmed) 06/30/16 - 04/09/17 Resolved Allergies, Adverse Reactions, Alerts Substance Reaction Severity Status NKDA Active Medications Zoloft 50 mg oral tablet 50 mg=1 tab, PO, Daily, # 30 tab, 5 Refill(s), Pharmacy: [facility] Start Date: 06/04/17 Status: Ordered Results No data available for this section Immunizations Given and Recorded Vaccine Date Status Refusal Reason influenza virus vaccine, inactivated 04/11/17 Given diphtheria/pertussis, acel/tetanus adult 01/26/17 Given Procedures Procedure Date Related Diagnosis Body Site Insertion of intrauterine device (IUD) 06/04/17 Removal of intrauterine device (IUD) 06/04/17 Appendectomy 2010 Social History Social History Type Response Sexual Sexually active: Yes. Sexually active at age 18 Years. Alcohol Past Smoking Status Never smoker; Exposure to Tobacco Smoke None; Cigarette Smoking Last 365 Days No; Reg Smoking Cessation Counseling No Assessment and Plan No data available for this section
--- OUTSIDE RECORDS SUMMARY | 2018-10-31 06:50 | XMS REPORT | Summary of Care ---
Author Author [facility] [place] Organization [facility] [place] Address Unknown Phone Unavailable Encounter HQ Vinicio(FIN) [id number] Date(s): 09/02/18 - 09/02/18 [facility] [place] [id number] [address]- Encounter Diagnosis Well woman exam with routine gynecological exam (Final) - 09/03/18 Female dyspareunia (Final) - 09/03/18 Discharge Disposition: Home or Self Care Attending Physician: Baljit Peters MD Vital Signs Most recent to 1 oldest [Reference Range]: Height 154.94 cm (09/02/18 10:27 AM) Temperature Oral 99 DegF [96.4-99.1 DegF] (09/02/18 10:27 AM) Blood Pressure 125/81 mmHg [90-140/60-90 mmHg] (09/02/18 10:27 AM) Peripheral Pulse 64 bpm Rate [60-100 bpm] (09/02/18 10:27 AM) Weight 45.568 kg (09/02/18 10:27 AM) Body Mass Index 18.98 m2 (09/02/18 10:27 AM) Problem List Condition Effective Dates Status [...] Date Related Diagnosis Body Site Status Appendectomy 2010 Completed Social History Social History Type Response Sexual Sexually active: Yes. Sexually active at age 18 Years. Alcohol Past Smoking Status Never smoker; Exposure to Tobacco Smoke None; Cigarette Smoking Last 365 Days No; Reg Smoking Cessation Counseling No entered on: 09/02/18 Assessment and Plan No data available for this section
--- OUTSIDE RECORDS SUMMARY | 2018-10-31 06:50 | XMS REPORT | Summary of Care ---
Author Author [facility] [place] Organization [facility] [place] Address Unknown Phone Unavailable Encounter HQ Vinicio(FIN) [phone] Date(s): 04/07/18 - 04/07/18 [facility] [employer] [address] [address]- Encounter Diagnosis Dyspareunia, female (Final) - 04/07/18 Vaginal discharge (Final) - 04/07/18 Irregular menstrual cycle (Final) - 04/07/18 Discharge Disposition: Home or Self Care Attending Physician: Baljit Peters MD Vital Signs Most recent to 1 oldest [Reference Range]: Height 154.94 cm (04/07/18 11:08 AM) Blood Pressure 115/79 mmHg [90-140/60-90 mmHg] (04/07/18 11:08 AM) Peripheral Pulse 109 bpm Rate [60-100 bpm] *HI* (04/07/18 11:08 AM) Weight 47.443 kg (04/07/18 11:08 AM) Body Mass Index 19.76 m2 (04/07/18 11:08 AM) Problem List Condition Effective Dates Status Health Status Informant Appendicitis(Confirm 2008 Resolved ed) 16 weeks gestation < 10/30/16 Resolved of (Confirmed) Herpes(Confirmed) Resolved (Confirmed) < 02/2016 Resolved (Confirmed) 06/30/16 - 04/09/17 Resolved Allergies, Adverse Reactions, Alerts No Known Medication Allergies Medications clindamycin 2% vaginal cream 1 appl, VAG, Bedtime, # 5 gm, 1 Refill(s), Pharmacy: [facility] [place] Start Date: 04/07/18 Stop Date: 08/16/18 Status: Discontinued Keflex 500 mg oral capsule 500 mg=1 cap, PO, BID, X 7 day, # 14 cap, 0 Refill(s), Pharmacy: [facility] [place] Start Date: 05/11/18 Stop Date: 05/18/18 Status: Completed tinidazole 500 mg oral tablet 2,000 mg=4 tab, PO, ONCE, # 4 tab, 0 Refill(s), Pharmacy: [facility] [place] Start Date: 04/07/18 Stop Date: 08/16/18 Status: Discontinued Results Most recent to 1 oldest [Reference Range]: C trachomatis by Amp Negative Det (APTIMA) *NA* [Negative] (04/08/18 4:00 PM) N gonorrhea by Amp Negative Det (APTIMA) *NA* [Negative] (04/08/18 4:00 PM) Source [facility] Urine *NA* (04/08/18 4:00 PM) Microbiology Reports TEST: Culture: Urine STATUS: Auth (Verified) BODY SITE: SOURCE: Urine, Clean Catch COLLECTED DATE/TIME: 04/08/18 4:00 PM FINAL REPORT 10,000 - 50,000 CFU/mL Yeast Immunizations Given and Recorded Vaccine Date Status [...]
--- OUTSIDE RECORDS SUMMARY | 2018-10-31 06:50 | XMS REPORT | Summary of Care ---
Author Organization Unknown Address Unknown Phone Unavailable Encounter HQ Encntr_alidestini(HERBERT) [id number] Date(s): 11/02/14 - 11/02/14 [facility] [address] [place] [id number]- Discharge Disposition: Home Physician Attending: Conchita Velarde MD Physician Admitting: Conchita Velarde MD Physician_Referring: Conchita Velarde MD Vital Signs No data available for this section Problem List No data available for this section Allergies, Adverse Reactions, Alerts No data available for this section Medications No data available for this section Results No data available for this section Immunizations No data available for this section Procedures No data available for this section Social History No data available for this section Assessment and Plan No data available for this section
[2018-10-31] MEDS ORDERED: SODIUM CHLORIDE 0.9% 1000ML 1,000 ML IV STA (06:54)
[2018-10-31] MEDS ORDERED: ONDANSETRON HCL INJ 2MG/ML 2ML 2 MG/ML VIAL IV STA (06:54)
[2018-10-31 07:12] LABS: BASOPHILS % 0.5 % (0.0-1.0); EOSINOPHILS % 0.7 % (0.0-6.0); HEMATOCRIT 40.3 % (34.2-44.1); HEMOGLOBIN 13.9 g/dL (12.0-16.0); LYMPHOCYTES # (AUTO) 2.2 (1.0-3.2); LYMPHOCYTES % 39.6 % (18.0-39.1); MEAN CORPUSCULAR HEMOGLOBIN 31.4 pg (28-32); MEAN CORPUSCULAR HGB CONC 34.5 g/dL (31-35); MEAN CORPUSCULAR VOLUME 91.2 fL (81-99); MONOCYTES # (AUTO) 0.5 (0.2-0.8); MONOCYTES % 8.4 % (4.4-11.3); NEUTROPHILS # (AUTO) 2.8 (2.1-6.9); NEUTROPHILS % 50.6 % (38.7-80.0); PLATELET COUNT 354 x10e3/uL (140-360); RED BLOOD COUNT 4.42 x10e6/uL (3.6-5.1); RED CELL DISTRIBUTION WIDTH 12.4 % (11.7-14.4)
[2018-10-31 07:15] LABS: CLARITY,URINE CLEAR (CLEAR); COLOR,URINE YELLOW (YELLOW)
[2018-10-31 07:16] LABS: BILIRUBIN,URINE NEGATIVE (NEGATIVE); KETONES,URINE NEGATIVE (NEGATIVE); LEUKOCYTE ESTERASE ,URINE NEGATIVE (NEGATIVE); NITRITE,URINE NEGATIVE (NEGATIVE); PREGNANCY TEST, URINE NEGATIVE (NEGATIVE); PROTEIN,URINE DIPSTICK NEGATIVE (NEGATIVE); URINE UROBILINOGEN 1 mg/dL (0.2 - 1)
[2018-10-31 07:17] LABS: AMPHETAMINES SCREEN,URINE NEGATIVE (NEGATIVE); BENZODIAZEPINES SCREEN,URINE NEGATIVE (NEGATIVE); PHENCYCLIDINE SCREEN,URINE NEGATIVE (NEGATIVE)
[2018-10-31 07:19] LABS: INR 0.92; PROTHROMBIN TIME 12.8 seconds (11.9-14.5)
[2018-10-31 07:20] LABS: PARTIAL THROMBOPLASTIN TIME 30.2 seconds (23.8-35.5)
[2018-10-31 07:28] LABS: ALANINE AMINOTRANSFERASE 14 IU/L (0-55); ALBUMIN/GLOBULIN RATIO 1.4 (0.8-2.0); ALKALINE PHOSPHATASE 75 IU/L (40-150); ANION GAP 11.5 mmol/L (8-16); BLOOD UREA NITROGEN 12 mg/dL (7-26); BUN/CREATININE RATIO 17 (6-25); CALCIUM 9.6 mg/dL (8.4-10.2); CARBON DIOXIDE 25 mmol/L (22-29); CHLORIDE 103 mmol/L (98-107); CREATINE KINASE 40 IU/L (29-168); CREATININE, SERUM 0.72 mg/dL (0.57-1.11); EST GLOMERULAR FILTRATION RATE > 60 ML/MIN (60-); GLUCOSE 85 mg/dL (74-118); LIPASE 21 U/L (8-78); MAGNESIUM 2.1 MG/DL (1.3-2.1); POTASSIUM 3.5 mmol/L (3.5-5.1); SODIUM 136 mmol/L (136-145)
[2018-10-31 07:41] LABS: BACTERIA,URINE RARE /HPF; EPITHELIAL CELLS,URINE RARE /LPF; WBC,URINE (MAN) 0-5 /HPF (0-5)
--- NOTE | 2018-10-31 07:56 | Diagnostic Imaging Report ---
EXAMINATION: CHEST SINGLE (PORTABLE) INDICATION: Nausea, vomiting, syncope. COMPARISON: None FINDINGS: TUBES and LINES: None. LUNGS: Lungs are well inflated. There is no evidence of pneumonia or pulmonary edema. PLEURA: No pleural effusion or pneumothorax. HEART AND MEDIASTINUM: The cardiomediastinal silhouette is unremarkable. BONES AND SOFT TISSUES: No acute osseous abnormality. UPPER ABDOMEN: No free air under the diaphragm. IMPRESSION: No acute radiographic abnormality. Signed by: Dr. Miguelito Grier MD on 10/31/2018 7:53 AM
--- NOTE | 2018-10-31 10:28 | Diagnostic Imaging Report ---
EXAMINATION: Head CT HISTORY: Syncope, lightheadedness, poor appetite for the last 3 weeks COMPARISON: None. TECHNIQUE: Multidetector axial images were obtained without contrast from the foramen magnum to the vertex . The images were reconstructed using brain and bone algorithms. Thin section brain images were reformatted into coronal and sagittal planes. Image quality: Motion/streaking artifact limits the evaluation of the skull base and posterior cranial fossa. Dose modulation, iterative reconstruction, and/or weight based adjustment of the mA/kV was utilized to reduce the radiation dose to as low as reasonably achievable. FINDINGS: Parenchyma: 1. No abnormal densities. 2. No mass or hemorrhage. No CT evidence of acute territorial vascular insult. Extra-axial spaces:No abnormal density. No extra-axial fluid collections Brain volume: Normal for age. Ventricles: No hydrocephalus or displacement. Arteries: No density suggestive of thrombus. Dural sinuses: No abnormal density. Extra-axial spaces: No abnormal density. Foramen magnum: No mass, Chiari malformation, or basilar invagination. Sella: No obvious mass. Paranasal/mastoid sinuses: Imaged portions unremarkable. Skull/Scalp: No lytic or blastic lesions. No fractures. IMPRESSION: Normal head CT. Signed by: Dr. Anabelle Jenkins M.D. on 10/31/2018 10:25 AM
[2018-10-31 10:58] VITALS: BP 113/77
== END 2018-10-31 11:15 | disposition home or self-care (01) ==
LOC: ER 06:44
DX: R55 Syncope and collapse (principal); R11.0 Nausea; R53.1 Weakness; K29.00 Acute gastritis without bleeding
CPT/HCPCS: 36415; 70450; 71045; 80053; 80307; 81001; 81025; 82550; 82553; 83690; 83735; 84484; 85025; 85610; 85730; 87086; 93005; 99284; J2405; J7030